=== PATIENT | female | born 1960 | race Caucasian/White ===

== ENCOUNTER → 2019-05-24 | Outpatient (CLI) | payer OTHER ==
[2019-05-24 19:01] LABS: Albumin 4.8 g/dL (3.80-4.90); Albumin/Globulin Ratio 2.18 (1.60-3.17); Anion Gap 9.5 mmol/L (4.00-12.00); Bilirubin, Conjugated 0.2 mg/dL (0.20-0.40); Bilirubin,Unconjugated 0.3 mg/dL; Carbon Dioxide 23.5 mmol/L (21.6-31.8); Globulin 2.2 g/dL (1.6-3.3); Potassium 5.1 mmol/L (3.5-5.5); Total Bilirubin 0.5 mg/dL (0.2-1.2)
== END | disposition home or self-care (01) ==
LOC: LABWHC1 13:42
PROVIDERS: ATTEND Internal Medicine
DX: E03.9 Hypothyroidism, unspecified (principal); R94.6 Abnormal results of thyroid function studies
CPT/HCPCS: 36415; 80051; 80074; 80076; 82330; 82565; 84439; 84443; 84481; 84520

== ENCOUNTER → 2019-06-07 | Outpatient (CLI) | payer OTHER ==
--- NOTE | 2019-06-07 07:45 | US ---
EXAMINATION TYPE: US abdomen limited DATE OF EXAM: 06/07/2019 COMPARISON: NONE CLINICAL HISTORY: R94.5 Abnormal results of liver function studies. cholecystomy EXAM MEASUREMENTS: Liver Length: 14.8 cm Gallbladder Wall: surgically removed CBD: 0.4 cm Right Kidney: 8.4 x 4.0x 4.2 cm Pancreas: overlying bowel gas Liver: Very subtly heterogenous with portions demonstrating suboptimal visualization of the vertebral triads. No focal hepatic mass is seen. Heterogeneity does limit evaluation for hepatic masses. Gallbladder: Surgically absent Evidence for sonographic Montez's sign: No CBD: wnl Right Kidney: wnl IMPRESSION: Very slight heterogeneity of the hepatic parenchyma. This most commonly relates to hepati c steatosis but can be seen in other hepatocellular diseases. Correlate with liver function test resu lts.
== END | disposition home or self-care (01) ==
LOC: RADUSWWP 06:56
PROVIDERS: ATTEND Internal Medicine
DX: R94.5 Abnormal results of liver function studies (principal); Z88.0 Allergy status to penicillin
CPT/HCPCS: 76705

== ENCOUNTER → 2021-12-15 | Outpatient (CLI) | payer MEDICARE ==
--- NOTE | 2021-12-15 15:41 | CT ---
EXAMINATION TYPE: CT lumbar spine wo con DATE OF EXAM: 12/15/2021 1:59 PM COMPARISON: CT dated 08/25/2016 HISTORY: low back pain CT DLP: 939 mGycm Automated exposure control for dose reduction was used. Technique: Unenhanced CT of the lumbar spine was performed. Bone and soft tissue window settings are submitted as well as coronal and sagittal reconstructions. Findings: Partially lumbarized S1. Preserved lumbar curvature. No significant anterolisthesis or retrolisthesis . Suspected chronic healed nondisplaced fracture of the anterior aspect of L3 vertebral body. Bone fr agment is seen at the anterior superior aspect of S1, stable. No definite vertebral body collapse or acute displaced fracture. Degenerative changes at L5-S1 level with degenerated disc and bilateral facet osteoarthropathy. Multilevel tiny opposing endplate osteoph ytosis. L1-L2: No significant disc disease, central spinal canal stenosis or neuroforaminal stenosis. L2-L3: Bilateral focal foraminal disc protrusions associated with slightly prominent posterior epidur al fat, causing no significant central spinal canal stenosis or neuroforaminal stenosis. L3-L4: Mild diffuse posterior disc bulge, associated with slightly prominent posterior epidural fat, causing no significant central spinal canal stenosis or neuroforaminal stenosis. L4-L5: No significant disc disease, central spinal canal stenosis or neuroforaminal stenosis. L5-S1: Degenerated disc with diffuse posterior disc bulge, bilateral focal foraminal and extraforamin al protrusions, associated with bilateral facet osteoarthropathy and posterior osteophytosis, causing mild central spinal canal stenosis, mild right and moderate left neuroforaminal stenosis. Suspected indentation/compression of L5 nerve roots in extraforaminal location by adjacent osteophytosis. Arterial atherosclerotic calcifications. Extensive pancreatic calcifications likely representing sequ marysol of previous pancreatitis. Previous cholecystectomy. No paraspinal lesion. IMPRESSION: Partially lumbarized S1. Degenerative changes of the lumbar spine with multilevel DDD most evident at L5-S1 level as detailed above. Further MRI assessment can be considered if clinically required. Inci dental findings as detailed above.
== END | disposition home or self-care (01) ==
LOC: RADCTMAIN 13:21
PROVIDERS: ATTEND Psychiatry & Neurology Neurology
DX: M47.816 Spondylosis without myelopathy or radiculopathy, lumbar region (principal); M51.37 Other intervertebral disc degeneration, lumbosacral region
CPT/HCPCS: 72131

== ENCOUNTER → 2022-02-23 | Outpatient (CLI) | payer MEDICARE ==
--- NOTE | 2022-02-23 13:07 | CT ---
EXAMINATION TYPE: CT thoracic spine wo con DATE OF EXAM: 02/23/2022 COMPARISON: X-ray dated 07/10/2016 HISTORY: Thoracic pain CT DLP: 523.90 mGycm Automated exposure control for dose reduction was used. TECHNIQUE: Multiplanar CT scan of the thoracic spine without IV contrast administration. FINDINGS: Mild osteopenia. Moderate dextroscoliosis of the thoracic spine with the apex at T9 level. No signifi cant anterolisthesis or retrolisthesis. No definite vertebral body collapse or acute displaced fractu re. Degenerative changes of the thoracic spine with multilevel opposing endplate osteophytosis, degenerat ed discs, facet osteoarthropathy, costovertebral and costotransverse osteoarthropathy. The degenerati ve changes are most evident at T2-3, T3-4, T7-8, T8-9 and T9-10 levels. Multilevel subchondral sclerotic changes are also seen most evident at T9-10 level. Right T2-3, right T5-6, right T7-8, bilateral T8-9 and left T9-10 neural foramina stenosis. No significant thoracic di sc disease or significant central spinal canal stenosis. No paraspinal lesion. Bilateral apical pulmonary fibrotic changes. 4 mm right upper lobe anterior nodule, for follow-up CT scan in 12 months if high risk patient. Scattered arterial and coronary atherosclerotic calcification s. Previous cholecystectomy. Pancreatic calcifications likely representing sequela of chronic pancrea titis. IMPRESSION: Degenerative changes of the thoracic spine with multilevel neural foraminal stenosis as detailed abov e. Further MRI assessment can be considered if clinically required. Other incidental findings as desc ribed above.
== END | disposition home or self-care (01) ==
LOC: RADCTMAIN 12:08
PROVIDERS: ATTEND Psychiatry & Neurology Neurology
DX: M47.812 Spondylosis without myelopathy or radiculopathy, cervical region (principal); K86.89 Other specified diseases of pancreas; M99.71 Connective tissue and disc stenosis of intervertebral foramina of cervical region
CPT/HCPCS: 72128

== ENCOUNTER → 2024-01-06 | Outpatient (CLI) | payer MEDICARE ==
--- NOTE | 2024-01-06 14:08 | XR ---
EXAMINATION TYPE: XR foot complete LT, XR ankle limited LT DATE OF EXAM: 01/06/2024 1:41 PM CLINICAL INDICATION:Female, 63 years old with history of M79.673 FOOT PAIN M25.579 ANKLE AND JOINT PA IN [place]; COMPARISON: None TECHNIQUE: XR foot complete LT, XR ankle limited LT examined in the AP, oblique, and lateral projecti ons. FINDINGS: No evidence of any acute osseous pathology. Soft tissue swelling around the ankle. Joints are preserv ed. Degeneration changes of the foot worse at the first digit metatarsophalangeal joint with joint sp gael narrowing and osteophyte formation. There is soft tissue swelling around the ankle. IMPRESSION: 1. No evidence of acute fracture. 2. 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 3. Soft tissue swelling around the ankle correlate for ligamentous injury.
== END | disposition home or self-care (01) ==
LOC: RADXRMAIN 13:18
PROVIDERS: ATTEND Internal Medicine
DX: M25.472 Effusion, left ankle (principal)

== ENCOUNTER → 2024-01-23 | Outpatient (CLI) | payer MEDICARE ==
--- NOTE | 2024-01-23 14:59 | US ---
EXAMINATION TYPE: US abdomen limited DATE OF EXAM: 01/23/2024 COMPARISON: 2019 Abd CLINICAL INDICATION: Female, 63 years old with history of R74.8 ELEVATED LIVER ENZYMES; Gallbladder r emoved TECHNIQUE: Multiple sonographic images of the right upper quadrant are obtained. FINDINGS: EXAM MEASUREMENTS: Liver Length: 15.8 cm CBD: 1.28 cm Right Kidney: 9.0 x 4.3 x 4.6 cm MANAGER CONCRETE NOTES: Pancreas: Stones noted within pancreatic duct vs CHD Liver: Dilated ducts throughout Gallbladder: Surgically absent Evidence for sonographic Montez's sign: No CBD: wnl s/p cholecystectomy; see above - possible stones pancreatic duct vs CHD Right Kidney: wnl IMPRESSION: 1. Dilated common bile duct. Some calcification may be present within the distal common bile duct at the head of the pancreas. Consider ERCP.
== END | disposition home or self-care (01) ==
LOC: RADUSWWP 09:31
PROVIDERS: ATTEND Internal Medicine
DX: K83.8 Other specified diseases of biliary tract (principal); R74.8 Abnormal levels of other serum enzymes; Z90.49 Acquired absence of other specified parts of digestive tract
CPT/HCPCS: 76705

== ENCOUNTER 2024-03-06 10:18 | Day surgery (SDC) | payer MEDICARE ==
[2024-03-05 08:49] VITALS: BMI 22.4
[2024-03-06] MEDS: IV FLUID CONTINUATION 1,000 ML IV ONE (10:59)
[2024-03-06] MEDS: LACTATED RINGERS 1,000 ML IV SCH (11:08)
[2024-03-06 11:10] VITALS: TEMP 97.8
[2024-03-06] MEDS ORDERED: PROPOFOL 10 MG/ML 20 ML VIAL IV ONE (11:45)
--- NOTE | 2024-03-06 12:08 | P.PCN ---
Date of Procedure: 03/06/24 Procedure(s) Performed: BRIEF HISTORY: Patient is a 63-year-old pleasant white female scheduled for an elective colonoscopy as a part of screening for colon cancer. PROCEDURE PERFORMED: Colonoscopy with snare polypectomy. PREOPERATIVE DIAGNOSIS: Screening for colon cancer. IV sedation per Anesthesia. PROCEDURE: After informed consent was obtained, the patient, was brought into the endoscopy unit. IV sedation was administered by Anesthesia under continuous monitoring. Digital rectal examination was normal. Initially the Olympus CF-160 flexible video colonoscope was then inserted in the rectum, gradually advanced into the cecum without any difficulty. Careful examination was performed as the scope was gradually being withdrawn. Ileocecal valve and the appendiceal orifice were visualized and appeared normal. Prep was poor in several areas of the colon. Mucosa of the cecum, but in the ascending colon there was a 2.5 cm broad- based polyp removed by snare polypectomy and complete polypectomy accomplished. Rest of the ascending colon, transverse colon, descending colon, sigmoid colon, and rectum appeared normal. Retroflexion was performed in the rectum and no lesions were seen. The patient tolerated the procedure well. IMPRESSION: 2.5 cm ascending colon polyp status post piecemeal snare polypectomy and complete polypectomy accomplished Poor prep in several areas of the colon RECOMMENDATIONS: Findings of this examination were discussed with the patient as well as her family. She was advised biopsy results. If the biopsy reveals adenoma she can have repeat colonoscopy in 3 years..
[2024-03-06 12:29] VITALS: BP 134/79; PULSE 85; RESP 15
== END 2024-03-06 12:43 | disposition home or self-care (01) ==
LOC: ORWHC2ENDO 10:18
PROVIDERS: ATTEND Internal Medicine Gastroenterology
DX: Z12.11 Encounter for screening for malignant neoplasm of colon (principal); D12.2 Benign neoplasm of ascending colon; I10 Essential (primary) hypertension; E07.9 Disorder of thyroid, unspecified; F41.9 Anxiety disorder, unspecified; K21.9 Gastro-esophageal reflux disease without esophagitis; F12.90 Cannabis use, unspecified, uncomplicated; F17.200 Nicotine dependence, unspecified, uncomplicated; Z79.890 Hormone replacement therapy; Z79.899 Other long term (current) drug therapy; Z90.49 Acquired absence of other specified parts of digestive tract; Z90.710 Acquired absence of both cervix and uterus; Z88.0 Allergy status to penicillin
CPT/HCPCS: 88305; 45385; J2704

== ENCOUNTER → 2024-04-26 | Outpatient (CLI) | payer MEDICARE ==
--- NOTE | 2024-05-18 14:36 | CT ---
Patient: Gina Green Ordering Physician: Unknown, Unknown ID: [id number] Phone, Pager: Phone : N/A Pager: N/A : 07/08/1961 Age/Gender: 62Y, F Primary Location: N/A Procedure: CT angio neck EXAMINATION TYPE: CT angio head neck DATE OF EXAM: 04/26/2024 HISTORY: Carotid stenosis COMPARISON: No comparison available on downtime PACS. CT DLP: 226 mGycm. Automated Exposure Control for Dose Reduction was Utilized. TECHNIQUE: CTA scan of the neck is performed with IV Contrast, patient injected with 65 mL of Isovue 370, axial images are obtained, coronal and sagittal reformatted images are reviewed. Three-D recons tructed images are created on an independent workstation and reviewed. Source images are reviewed. FINDINGS: Carotid/Vascular Structures: There is a 3 vessel arch. Common carotid arteries bifurcate into internal and external carotid arteries. There is mild narrowin g of the left internal carotid artery approaching 50%. Left internal carotid artery Calculated narrow ing is 48%. There appears to be a critical stenosis of the right internal carotid artery origin. Right carotid Bifurcation is poorly visualized and the internal carotid artery flow lumen is not iden tified. Distal internal carotid artery however is patent with contrast. External carotid artery conta ins contrast. Reconstructed images also suggest critical stenosis. Vertebral arteries are codominant. Internal carotid arteries and vertebral arteries are patent to the skull base. IMPRESSION: 1. Severe High-grade to critical stenosis at the bifurcation distal common carotid artery with extent into the right internal carotid artery origin. 2. Mild narrowing left internal carotid artery origin. NASCET criteria was used in interpretation of this exam?
== END | disposition home or self-care (01) ==
LOC: RADCTMAIN 10:30
PROVIDERS: ATTEND Surgery
DX: I65.23 Occlusion and stenosis of bilateral carotid arteries (principal)
CPT/HCPCS: 70498; Q9967

== ENCOUNTER → 2024-05-24 | Outpatient (CLI) | payer MEDICARE ==
--- NOTE | 2024-05-24 12:52 | XR ---
EXAMINATION TYPE: XR chest 2V DATE OF EXAM: 05/24/2024 COMPARISON: None INDICATION: Elevated white count TECHNIQUE: Frontal and lateral views of the chest are obtained. FINDINGS: The heart size is normal. The pulmonary vasculature is normal. The lungs are clear. Electronic leads are in the right shoulder region. IMPRESSION: 1. No acute pulmonary process. [facility], , 05/24/2024 12:50 PM
== END | disposition home or self-care (01) ==
LOC: RADXRMAIN 12:05
PROVIDERS: ATTEND Internal Medicine
DX: D72.829 Elevated white blood cell count, unspecified (principal)
CPT/HCPCS: 71046

== ENCOUNTER → 2024-05-24 | Outpatient (CLI) | payer MEDICARE ==
[2024-05-24 13:22] LABS: Appearance,Urine Clear (Clear); Bilirubin,Urine Negative (Negative); Blood,Urine Negative (Negative); Color,Urine Colorless; Glucose,Urine (UA) Negative (Negative); Ketones,Urine Negative (Negative); Leukocyte Esterase,Urine Small (Negative); Mucus,Urine Rare /hpf; Nitrite,Urine Negative (Negative); Protein,Urine Negative (Negative); Specific Gravity,Urine 1.004 (1.001-1.035); Squamous Epithelial Cell,Urine 1 /hpf (0-4); Urobilinogen,Urine <2.0 mg/dL (<2.0); WBC,Urine 6 /hpf (0-5)
[2024-05-24 18:48] LABS: Hepatitis A Antibody IgM Nonreactive (Nonreactive); Hepatitis B Core IgM Nonreactive (Nonreactive); Hepatitis B Surface Antigen Nonreactive (Nonreactive); Hepatitis C IgG Antibody Nonreactive (Nonreactive)
[2024-05-25 13:56] LABS: Alkaline Phosphatase, Bone Sp 39.9 ug/L (5.6 - 29.0)
[2024-05-28 15:54] LABS: ALT 142 U/L (8-44); AST 473 U/L (13-35); Albumin 4.3 g/dL (3.8-4.9); Albumin/Globulin Ratio 1.54 Ratio (1.60-3.17); Alkaline Phosphatase 510 U/L (41-126); BUN/Creat Ratio 8.18 Ratio (12.00-20.00); Calcium 9.1 mg/dL (8.7-10.3); Carbon Dioxide 18.3 mmol/L (21.6-31.8); Chloride 96 mmol/L (96-109); Globulin 2.8 g/dL (1.6-3.3); Glucose 95 mg/dL (70-110); Sodium 133 mmol/L (135-145); Total Bilirubin 0.7 mg/dL (0.3-1.2); Total Protein 7.1 g/dL (6.2-8.2)
== END | disposition home or self-care (01) ==
LOC: LABWHC1 12:31
PROVIDERS: ATTEND Internal Medicine
DX: D72.829 Elevated white blood cell count, unspecified
CPT/HCPCS: 36415; 80053; 80074; 81001; 82390; 82525; 83516; 84075; 86038

== ENCOUNTER → 2024-05-29 | Outpatient (CLI) | payer MEDICARE ==
[2024-05-29 10:22] LABS: Basophils # (A) 0.1 k/uL (0-0.2); Basophils % (A) 1 %; Eosinophils # (A) 0.3 k/uL (0-0.7); Eosinophils % (A) 5 %; HGB 11.6 gm/dL (11.4-16.0); Lymphocytes # (A) 1.2 k/uL (1.0-4.8); Lymphocytes % (A) 16 %; MCH 32.8 pg (25.0-35.0); MCHC 33.1 g/dL (31.0-37.0); MCV 99.2 fL (80.0-100.0); Mean Platelet Volume 7.5; Monocytes # (A) 0.5 k/uL (0-1.0); Monocytes % (A) 6 %; Neutrophils # (A) 5.1 k/uL (1.3-7.7); Neutrophils % (A) 70 %; Platelet Count 259 k/uL (150-450); RBC 3.53 m/uL (3.80-5.40); RDW 11.5 % (11.5-15.5); WBC 7.3 k/uL (3.8-10.6)
--- NOTE | 2024-05-29 12:10 | CT ---
EXAMINATION TYPE: CT abdomen pelvis w con CT DLP: 863 mGycm, Automated exposure control for dose reduction was used. DATE OF EXAM: 05/29/2024 11:56 AM COMPARISON: Abdominal ultrasound 01/23/2024 CLINICAL INDICATION:Female, 63 years old with history of R74.8 ABNORMAL LEVELS OF OTHER SERUM ENZYMES ; abnormal labs TECHNIQUE: Standard CT of the abdomen and pelvis following the administration of 100 cc of Isovue 3 00 IV contrast material and oral contrast. Coronal and sagittal reformats were performed. FINDINGS: LOWER CHEST: Unremarkable ABDOMEN LIVER: Unremarkable GALLBLADDER AND BILE DUCTS: Gallbladder is surgical absent. Intra and extrahepatic biliary duct dilat ation with the common bile duct measuring 8 mm at the pancreatic head. PANCREAS: Diffuse parenchymal calcifications throughout the pancreas with diffuse dilated irregular b eaded appearance of the pancreatic duct measuring up to 9 mm at the pancreatic body. No surrounding i nflammatory changes or fluid collections. Prominent 1.1 cm calcification within the pancreatic head. SPLEEN: Unremarkable. ADRENAL GLANDS: Unremarkable. KIDNEYS AND URETERS: No evidence of hydronephrosis or renal calculus. The kidneys have symmetrically. Contrast is demonstrated within both collecting systems on the delayed phase. PELVIS BLADDER: Unremarkable REPRODUCTIVE: The uterus is surgically absent. ABDOMEN & PELVIS STOMACH AND BOWEL: Stomach and duodenum are unremarkable. Enteric contrast reaches the distal small b owel. Few scattered colonic diverticula without evidence for acute diverticulitis. Mild colonic stool burden. The appendix is not definitively visualized. No surrounding inflammatory changes in the righ t lower quadrant. No evidence of bowel obstruction. PERITONEUM: No evidence of pneumoperitoneum or free fluid. VASCULATURE: Moderate atherosclerotic calcifications are present throughout the abdominal aorta and i ts branches. No evidence of aortic aneurysm. Portal venous system appears patent. MUSCULOSKELETAL: No acute osseous abnormalities LYMPH NODES: No gross evidence for lymphadenopathy. SOFT TISSUE/ABDOMINAL WALL: Unremarkable IMPRESSION: Intrahepatic and extra hepatic biliary ductal dilatation postcholecystectomy. Additional findings of chronic pancreatitis with multiple pancreatic parenchymal calcifications and dilated beaded appearanc e of the pancreatic duct. Large calcification within the pancreatic head which may contribute to panc reatic ductal dilatation. No definitive evidence of calcification within the common bile duct within limitations of CT. Findings may relate to stricture from chronic pancreatitis. Additionally post chol ecystectomy physiology could account for the biliary ductal dilatation. Consider further evaluation w ith MRCP and/or ERCP as clinically indicated. [facility], , 05/29/2024 12:07 PM
[2024-05-29 12:31] LABS: RBC Morphology Normal
[2024-05-29 16:43] LABS: Protein, Total 6.6 g/dL (6.2-8.2); Total Protein 6.6 g/dL (6.2-8.2)
[2024-05-29 19:49] LABS: ALT 107 U/L (8-44); AST 81 U/L (13-35); Albumin 4.1 g/dL (3.8-4.9); Albumin/Globulin Ratio 1.64 Ratio (1.60-3.17); Alkaline Phosphatase 376 U/L (41-126); Blood Urea Nitrogen 8.2 mg/dL (9.0-27.0); Calcium 8.8 mg/dL (8.7-10.3); Carbon Dioxide 25.2 mmol/L (21.6-31.8); Chloride 103 mmol/L (96-109); Globulin 2.5 g/dL (1.6-3.3); Glucose 100 mg/dL (70-110); Potassium 4.7 mmol/L (3.5-5.5); Sodium 138 mmol/L (135-145); Total Bilirubin 0.3 mg/dL (0.3-1.2)
[2024-05-31 15:52] LABS: Albumin 3.77 g/dL (3.80-4.90); Gamma Globulin 1.12 g/dL (0.70-1.50)
== END | disposition home or self-care (01) ==
LOC: RADCTMAIN 09:34
PROVIDERS: ATTEND Internal Medicine
DX: R74.8 Abnormal levels of other serum enzymes
CPT/HCPCS: 74177; 80053; 82103; 84165; 85025; 86645; 86665; 86780

== ENCOUNTER 2024-06-18 06:57 | Inpatient (IN) | payer MEDICARE ==
[~2024-06-18 06:57] MED LIST: LIDOCAINE 1% (10MG/ML) FOR IV START INTRADERMA PRN; fentaNYL (PF) 50 MCG/ML 2 ML AMP IVP PRN
[2024-06-18] MEDS: IV FLUID CONTINUATION 1,000 ML IV ONE (07:56)
[2024-06-18] MEDS: ONDANSETRON 4 MG/2 ML VIAL IVP ONE (07:59)
[2024-06-18] MEDS: DEXAMETHASONE SOD PHOSPHATE 4 MG/ML 1 ML VIAL IV ONE (07:59)
[2024-06-18] MEDS: LACTATED RINGERS 1,000 ML IV SCH (07:59)
[2024-06-18] MEDS: fentaNYL (PF) 50 MCG/ML 2 ML AMP IVP STA ×2 (08:11→08:30)
[2024-06-18] MEDS: MIDAZOLAM 2 MG/2 ML VIAL IV PRN (08:11)
--- NOTE | 2024-06-18 09:00 | P.ANPRN ---
Procedure Note - Anesthesia - Invasive Line Right Arterial Line Time Out Performed: Yes Date of Procedure: 06/18/24 Time of Procedure: 08:10 Location of Patient: PreOp Preparation: Sterile Prep, Sterile Dressing Arterial Line Location: Radial Ultrasound Used: Yes Purpose - Visualization and Identification of Vasculature: Yes Needle Guage: 20 Image Stored and Saved: Yes Narrative: Invasive line placement per sterile protocol utilized. attempted Left radial ultrasound ,unable to canulize the radial artery , the ,the A line placed on the Right side ,ultrasound Guided
[2024-06-18] MEDS ORDERED: PROPOFOL 10 MG/ML 20 ML VIAL IV ONE (10:04)
[2024-06-18] MEDS ORDERED: PHENYLEPHRINE 10 MG/ML VIAL ONE (10:04)
[2024-06-18] MEDS ORDERED: fentaNYL (PF) 50 MCG/ML 2 ML AMP ONE (10:04)
[2024-06-18] MEDS ORDERED: NEOSTIGMINE 1 MG/ML 10 ML VIAL ONE (10:04)
[2024-06-18] MEDS ORDERED: PROTAMINE SULFATE 10 MG/ML 5 ML VIAL ONE (10:04)
[2024-06-18] MEDS ORDERED: SUCCINYLCHOLINE CHLORIDE 200 MG/10 ML VIAL IV ONE (10:04)
[2024-06-18] MEDS ORDERED: LIDOCAINE 1% INJ 10MG/ML (20 ML MDV) ONE (10:04)
[2024-06-18] MEDS ORDERED: ROCURONIUM 10 MG/ML (5 ML VIAL) IV ONE (10:04)
[2024-06-18] MEDS ORDERED: HEPARIN SODIUM,PORCINE 5,000 UNIT/ML 1 ML VIAL ONE (10:04)
[2024-06-18] MEDS ORDERED: LABETALOL 5 MG/ML VIAL MDV ONE (10:04)
[2024-06-18] MEDS ORDERED: GLYCOPYRROLATE 0.2 MG/ML 2 ML VIAL ONE (10:04)
[2024-06-18] MEDS: THROMBIN (BOVINE) 5,000 UNIT VIAL TOPICAL ONE ×2 (10:49)
[2024-06-18] MEDS: LIDOCAINE 1% INJ 10MG/ML (20 ML MDV) SQ ONE (10:49)
[2024-06-18] MEDS: ceFAZolin 2 GM in SODIUM CHLORIDE 0.9% 500 ML 500 ML IRRIGATION ONE (10:50)
[2024-06-18] MEDS: HEPARIN SODIUM (1,000 UNIT/ML) 2,000 UNIT in SODIUM CHLORIDE 0.9% 1,000 ML IRRIGATION ONE (10:51)
[2024-06-18] MEDS: LACTATED RINGERS 1,000 ML IV ONE (11:11)
[2024-06-18] MEDS ORDERED: CYCLOBENZAPRINE 10 MG TAB PO PRN (12:42)
--- NOTE | 2024-06-18 12:42 | P.OP ---
Date of Procedure: 06/18/24 Preoperative Diagnosis: Hemodynamically severe right ICA stenosis. Postoperative Diagnosis: Same. Procedure(s) Performed: Right carotid endarterectomy with patch angioplasty. Anesthesia: GIACOMOA Surgeon: Napoleon Oquendo Estimated Blood Loss (ml): 50 Urine output (ml): 500 Pathology: none sent Condition: stable Disposition: ICU Indications for Procedure: Patient is a 63-year-old female who on physical examination was found to have bilateral carotid bruits. This led to obtaining both a carotid duplex study and a CT angiogram of the carotid arterial system. Both revealed hemodynamically severe bilateral ICA stenosis. Given the patient's relatively young age of 63 it was felt that she would be best served by carotid endarterectomy as opposed to carotid stent procedure. The procedure of carotid endarterectomy, risk and benefits were discussed with the patient in great detail. All questions were answered to patient's satisfaction and patient wished to proceed. Consent form was signed. Description of Procedure: Patient was brought to a room placed in the supine position administered general endotracheal anesthesia delivered by the department of anesthesiology. The patient received intravenously administered prophylactic antibiotics in the perioperative phase. Patient's right neck, supraclavicular and anterior chest wall areas were sterilely prepped and draped in the usual manner. Skin incision was made along the anterior border the sternocleidomastoid muscle and carried down through the subcutaneous tissues. Hemostasis was achieved using electrocautery. The incision was deepened through the platysma and carried along the border of the anterior sternocleidomastoid muscle which was mobilized posterior laterally. The facial vein was identified and skeletonized. It was doubly ligated with silk suture and transected. The incision was deepened through to the carotid sheath where the common carotid artery was identified and dissected free of investing tissues and encircled with Vesseloops. The vagus nerve was identified and left undisturbed. The dissection was carried cephalad to the level of bulb where the superior thyroid artery was dissected free of investing tissues and encircled with a vessel loop as was the external carotid artery. The hypoglossal nerve was identified and left undisturbed. The dissection was then carried cephalad along the internal carotid artery and this was dissected free of investing tissues to the level past the point of plaque burden. The patient was systemically heparinized and after adequate circulation time and appropriate ACT being achieved the Vesseloops around the internal, common as well as the external and superior thyroid arteries were drawn closed. Arteriotomy was made in the common extended superiorly through the bulb and into the internal carotid segment past the level of plaque formation. Stump pressures were obtained which demonstrated mean arterial pressure of approximately 64 to 65 mmHg and thus no shunting was felt necessary. Endarterectomy plane was begun at the level of the common and extended superiorly through the level of the bulb. Retraction endarterectomy was performed on the external system. The endarterectomy was then continued into the internal segment and feathered off. The remaining luminal surface was inspected for any loose or free-floating material and this was removed where identified. The distal plaque was tacked at the internal carotid artery with 6- 0 Prolene suture. Closure with bovine pericardium of the arteriotomy was accomplished with 6-0 Prolene suture placed in a running fashion. Just prior to completion of the anastomotic line the arteriotomy was backbled through the internal as well as the external carotid system and flushed through the common system and no thrombus was retrieved. Arteriotomy closure was completed. Vesseloops were loosened about the superior thyroid as well as the external carotid artery, followed by the common and then the internal segments, flushing any potential debris into the external system. The anastomotic line had 1 point of bleeding which was controlled with 6-0 Prolene suture. The patient received 12.5 mg of protamine to reverse the heparin effect. Excellent pulse in the ICA distal to the endarterectomy plane was appreciated. Topical thrombin and Gelfoam were placed about the anastomotic line to help assure hemostasis. The wound was irrigated and reinspected. Hemostasis was judged to be adequate. Deep tissues were closed with 3-0 Vicryl and dermis was closed with 4-0 Monocryl placed in a running fashion. Appropriate dressings were applied. Patient tolerated the procedure well, awoke without apparent complication was transferred to the recovery area in satisfactory and stable condition.
[2024-06-18] MEDS ORDERED: BENZOCAINE/MENTHOL LOZENG 1 EACH LOZENGE MUCOUS MEM PRN (13:05)
[2024-06-18] MEDS ORDERED: MAG HYDROX/AL HYDROX/SIMETH 30 ML CUP PO PRN (13:05)
[2024-06-18] MEDS ORDERED: TRIMETHOBENZAMIDE 100 MG/ML 2 ML VIAL IM PRN (13:05)
[2024-06-18] MEDS: HYDROmorphone 0.5 MG/0.5 ML SYRINGE IVP PRN (13:22)
--- NOTE | 2024-06-18 15:06 | P.CNPUL ---
History of Present Illness Consult date: 06/18/24 Chief complaint: Carotid artery stenosis History of present illness: This is a 63-year-old female patient underwent a right carotid endarterectomy with patch angioplasty and the patient is currently postop day #1. The patient was found to have a hemodynamically severe right ICA stenosis and this surgery was done on an elective basis by vascular surgery. The patient is currently doing well. Hemodynamically stable. Cardiac rhythm is sinus. No hypotension. No sinus bradycardia. Surgical wound site is dry clean and intact. Postop white cell count is at 7.3 hemoglobin 11.6 and a platelet count of 256. Electrolytes are all within normal limits. AST is at 81 with an ALT of 107 and alkaline phosphatase of 376. She has history of hypothyroidism maintained on thyroid hormone replacement/Synthroid and the patient also has history of hyperlipidemia, hypertension and history of chronic anxiety/depression. She is moving all 4 extremities. No focal neurological deficits. Clinically and hemodynamically stable at this point in time. The patient will be transferred to ICU for monitoring for the next 24 hours. Pulse ox 99% on 2 L of oxygen. Oxygen Review of Systems Constitutional: Reports as per HPI Eyes: denies as per HPI, denies blurred vision, denies bulging eye, denies decreased vision, denies diplopia, denies discharge, denies dry eye, denies irritation, denies itching, denies pain, denies photophobia, denies loss of peripheral vision, denies loss of vision, denies tunnel vision/blind spots Ears: deny: decreased hearing, ear discharge, earache, tinnitus Ears, nose, mouth and throat: Reports as per HPI Breasts: absent: as per HPI, change in shape, gynecomastia, masses, nipple discharge, pain, skin changes, swelling Cardiovascular: Reports as per HPI Respiratory: Reports as per HPI Gastrointestinal: Reports as per HPI Genitourinary: Reports as per HPI Menstruation: Reports as per HPI Musculoskeletal: Reports as per HPI Musculoskeletal: absent: ankle pain, ankle stiffness, ankle swelling, as per HPI, elbow pain, elbow stiffness, elbow swelling, foot pain, foot stiffness, foot swelling, hand pain, hand stiffness, hand swelling, hip pain, hip stiffness, hip swelling, knee pain, knee stiffness, knee swelling, shoulder pain, shoulder stiffness, shoulder swelling, wrist pain, wrist stiffness, wrist swelling Integumentary: Reports as per HPI Neurological: Reports as per HPI Psychiatric: Reports as per HPI Endocrine: Reports as per HPI Allergic/Immunologic: Reports as per HPI Past Medical History Past Medical History: Eye Disorder, GERD/Reflux, Hyperlipidemia, Hypertension, Musculoskeletal Disorder, Osteoarthritis (OA), Thyroid Disorder, Vascular Disorder Additional Past Medical History / Comment(s): partially blind, feels foggy at times, History of Any Multi-Drug Resistant Organisms: None Reported Past Surgical History: Appendectomy, Cholecystectomy, Hysterectomy, Orthopedic Surgery Additional Past Surgical History / Comment(s): right leg femur fracture, eyes bilateral lens surgery, nalu permanent pain device , back pain chronic and sciatic nerve, colonoscopy, egd, hardware removed from rt leg,sinus sx Past Anesthesia/Blood Transfusion Reactions: No Reported Reaction Additional Past Anesthesia/Blood Transfusion Reaction / Comment(s): no blood transfusion Smoking Status: Former smoker - Past Family History Mother Family Medical History: CVA/TIA Father Additional Family Medical History / Comment(s): heart disease Medications and Allergies Home Medications Medication Instructions Recorded Confirmed Type Hydrocodone/Acetaminophen [[place] 1 - 2 each PO Q6HR PRN #50 tab 12/26/14 06/12/24 Rx 5-325] ARIPiprazole [Abilify] 2 mg PO DAILY 03/05/24 06/12/24 History Cholecalciferol (Vitamin D3) 4 tab PO DAILY 03/05/24 06/12/24 History [Vitamin D3 (125 MCG = 5,000 IU)] Esomeprazole Magnesium 40 mg PO DAILY 03/05/24 06/12/24 History Gabapentin 300 mg PO TID 03/05/24 06/12/24 History Levothyroxine Sodium [Synthroid] 137 mcg PO DAILY 03/05/24 06/12/24 History Losartan Potassium 100 mg PO DAILY 03/05/24 06/12/24 History Morphine Sulfate ER [Ms Contin] 15 mg PO BID PRN 03/05/24 06/12/24 History Sertraline HCl [Zoloft] 200 mg PO DAILY 03/05/24 06/12/24 History amLODIPine BESYLATE 10 mg PO DAILY 03/05/24 06/12/24 History atenoloL [Tenormin] 25 mg PO DAILY 03/05/24 06/12/24 History Aspirin [Adult Low Dose Aspirin EC] 81 mg PO DAILY 06/12/24 06/12/24 History Atorvastatin [Lipitor] 40 mg PO HS 06/12/24 06/12/24 History Cyclobenzaprine [Flexeril] 10 mg PO TID PRN 06/12/24 06/12/24 History Allergies Allergy/AdvReac Type Severity Reaction Status Date / Time Penicillins Allergy Rash/Hives. Verified 06/18/24 07:33 SWELLING. SOB. ITCHING. Physical Exam Vitals: Vital Signs Temp Pulse Resp BP BP Pulse Ox 06/18/24 14:45 74 18 142/61 99 06/18/24 14:15 70 18 143/65 99 06/18/24 13:45 72 14 129/65 131/52 97 06/18/24 13:30 73 14 137/69 139/52 97 06/18/24 13:15 72 14 145/74 149/57 96 06/18/24 13:00 73 16 139/66 137/55 99 06/18/24 12:45 71 16 140/67 156/59 99 06/18/24 12:31 97.6 F 77 16 157/82 156/57 99 06/18/24 09:12 67 16 138/68 100 06/18/24 07:30 97.5 F L 77 16 142/74 98 Intake and Output 06/18/24 06/18/24 06/18/24 06:59 14:59 22:59 Intake Total 1552 Output Total 550 Balance 1002 Intake: IV 1552 Output: Urine 500 Estimated Blood Loss 50 Other: Weight 61.9 kg The patient appeared well nourished and normally developed. Vital signs as documented. Head exam is unremarkable. No scleral icterus or corneal arcus noted. Neck is without jugular venous distension, thyromegaly, or carotid bruits. Carotid upstrokes are brisk bilaterally. The surgical wound site over the neck area is dry clean and intact Lungs are clear to auscultation and percussion. Cardiac exam reveals the PMI to be normally sized and situated. Rhythm is regular. First and second heart sounds normal. No murmurs, rubs or gallops. Abdominal exam reveals normal bowel sounds, no masses, no organomegaly and no aortic enlargement. Extremities are nonedematous and both femoral and pedal pulses are normal. Examination of the skin revealed no evidence of significant rashes, suspicious appearing nevi or other concerning lesions. Neurologically, the patient is awake and alert and the patient does not have any focal neurological deficit. Cranial nerves are essentially intact. Assessment and Plan Plan: GERD artery stenosis, severe, status post right carotid endarterectomy with patch angioplasty and the patient is currently postop day #0. Clinically stable, hemodynamically stable, no focal neurological deficit and the patient will be monitored in the intensive care unit. Cardiac rhythm is sinus. No neurological deficits. Hypertension Hyperlipidemia Osteoarthritis History of chronic anxiety/depression Plan Currently on 2 L of oxygen by nasal cannula Surgical wound is dry clean and intact Frequent neurological examination Continue aspirin 81 mg p.o. daily Continue Plavix 75 mg p.o. daily Resume home medications Will monitor this patient for the next 24 hours in the ICU.
[2024-06-18 15:23] LABS: Glucose,Whole Blood 129 mg/dL (70-110)
[2024-06-18] MEDS: atenoloL 25 MG TAB PO SCH (17:20)
[2024-06-18] MEDS: CLOPIDOGREL 75 MG TAB PO SCH (17:20)
[2024-06-18] MEDS: ASPIRIN 81 MG PO SCH (17:20)
[2024-06-18] MEDS: LEVOTHYROXINE 137 MCG TAB PO SCH (17:20)
[2024-06-18] MEDS: GABAPENTIN 300 MG CAP PO SCH (17:51)
[2024-06-18] MEDS: HYDROcodone/APAP 5-325MG 1 EACH TAB PO PRN (18:54)
[2024-06-18] MEDS: HYDROmorphone 1 MG/ML 1 ML SYRINGE IVP STA (19:51)
[2024-06-18] MEDS: ATORVASTATIN 40 MG TAB PO SCH (21:40)
[2024-06-18] MEDS: MORPHINE SULFATE ER 15 MG TABLET PO SCH (21:40)
[2024-06-19] MEDS: oxyCODONE-APAP 7.5-325MG 1 EACH TAB PO PRN (01:54)
[2024-06-19 04:43] LABS: Basophils % (A) 0 %; Eosinophils # (A) 0.1 k/uL (0-0.7); Eosinophils % (A) 1 %; HCT 30.5 % (34.0-46.0); HGB 10.7 gm/dL (11.4-16.0); Lymphocytes # (A) 1.4 k/uL (1.0-4.8); Lymphocytes % (A) 11 %; MCH 33.8 pg (25.0-35.0); MCHC 34.9 g/dL (31.0-37.0); MCV 96.8 fL (80.0-100.0); Mean Platelet Volume 7.8; Monocytes # (A) 0.6 k/uL (0-1.0); Monocytes % (A) 5 %; Neutrophils # (A) 10.2 k/uL (1.3-7.7); Neutrophils % (A) 82 %; Platelet Count 226 k/uL (150-450); RBC 3.15 m/uL (3.80-5.40); WBC 12.3 k/uL (3.8-10.6)
[2024-06-19] MEDS: PANTOPRAZOLE 40 MG TABLET PO SCH (06:34)
[2024-06-19] MEDS: SERTRALINE 100 MG TAB PO SCH (08:15)
[2024-06-19] MEDS: ARIPiprazole 2 MG TAB PO SCH (08:15)
[2024-06-19] MEDS: amLODIPine 10 MG TAB PO SCH (08:15)
[2024-06-19] MEDS: LOSARTAN 50 MG TAB PO SCH (08:16)
[2024-06-19] MEDS: CHOLECALCIFEROL 125 MCG (5000 IU) TABLET PO SCH (08:16)
--- NOTE | 2024-06-19 08:24 | P.DS ---
Providers Date of admission: 06/18/24 06:57 Expected date of discharge: 06/19/24 Attending physician: Napoleon Oquendo DO Consults: 06/18/24 12:46 Consult Physician Routine Consulting Provider: Keyanna Copeland Consult Reason/Comments: medical management Do you want consulting provider notified?: Already Contacted [facility] care physician: [facility]: 63-year-old female found to have bilateral carotid bruit who underwent imaging revealing hemodynamically severe bilateral ICA stenosis. Plan to move forward with a right carotid endarterectomy. She is postop day #1 for right carotid endarterectomy with patch angioplasty. Patient has a history of chronic pain and is on multiple pain medications. She reportedly was complaining of right neck pain and generalized pain throughout the night requesting her pain medications. This morning patient is seen sitting up, she denies any focal deficits. States pain is better managed. States she would like to go home. She has been up and voiding well. She had a small bowel movement. Denies any difficulty with swallowing. Pressures have been stable throughout the night with systolics running 130s to 150s. This morning blood pressures are elevated secondary to patient being upset. Exam General appearance: The patient is alert, oriented, appears in no acute distress. HET: Head is normocephalic and atraumatic. Pupils are equal and reactive. Neck: Supple. Right neck with incision well-approximated, minimal ecchymosis, mild swelling no hematoma. Heart: Regular. Lungs: Equal expansion, normal respiratory effort. Abdomen: Soft, nontender, nondistended. Extremities: Normal skin color and turgor. Neurological: No focal deficits. Strength and sensation are grossly intact. Assessment 1. Hemodynamically severe right ICA stenosis status post carotid endarterectomy with patch angioplasty 2. Chronic pain syndrome 3. Hyperlipidemia 4. Hypertension Plan 1. Encourage ambulation 2. Continue aspirin and Plavix, Plavix prescription sent to patient's pharmacy 3. Continue home medications 4. May discontinue arterial line. Continue to monitor blood pressures. Maintain systolic BP 130 to 180 mmHg 5. Plan for discharge if cleared by warehouse incentive selector 6. Discharge instructions reviewed with patient. She verbalized understanding. The impression and plan of care has been dictated as directed. I performed a history and examination of this patient, discussed the same with the dictator. I agree with the dictator's note ,documented as a scribe. Any additional findings or plans will be noted. Procedures: Right carotid endarterectomy with patch angioplasty Patient Condition at Discharge: Stable Plan - Discharge Summary Discharge Rx Participant: No New Discharge Prescriptions: New Clopidogrel [Plavix] 75 mg PO DAILY #30 tab Continue Hydrocodone/Acetaminophen [[place] 5-325] 1 - 2 each PO Q6HR PRN #50 tab PRN Reason: Pain atenoloL [Tenormin] 25 mg PO DAILY amLODIPine BESYLATE 10 mg PO DAILY Sertraline HCl [Zoloft] 200 mg PO DAILY Morphine Sulfate ER [Ms Contin] 15 mg PO BID PRN PRN Reason: Pain Losartan Potassium 100 mg PO DAILY Levothyroxine Sodium [Synthroid] 137 mcg PO DAILY Gabapentin 300 mg PO TID Cyclobenzaprine [Flexeril] 10 mg PO TID PRN PRN Reason: Muscle Spasm Esomeprazole Magnesium 40 mg PO DAILY Cholecalciferol (Vitamin D3) [Vitamin D3 (125 MCG = 5,000 IU)] 4 tab PO DAILY ARIPiprazole [Abilify] 2 mg PO DAILY Atorvastatin [Lipitor] 40 mg PO HS Aspirin [Adult Low Dose Aspirin EC] 81 mg PO DAILY Discharge Medication List Hydrocodone/Acetaminophen [[place] 5-325] 1 - 2 each PO Q6HR PRN #50 tab 12/26/14 [Rx] ARIPiprazole [Abilify] 2 mg PO DAILY 03/05/24 [History] Cholecalciferol (Vitamin D3) [Vitamin D3 (125 MCG = 5,000 IU)] 4 tab PO DAILY 03/05/24 [History] Esomeprazole Magnesium 40 mg PO DAILY 03/05/24 [History] Gabapentin 300 mg PO TID 03/05/24 [History] Levothyroxine Sodium [Synthroid] 137 mcg PO DAILY 03/05/24 [History] Losartan Potassium 100 mg PO DAILY 03/05/24 [History] Morphine Sulfate ER [Ms Contin] 15 mg PO BID PRN 03/05/24 [History] Sertraline HCl [Zoloft] 200 mg PO DAILY 03/05/24 [History] amLODIPine BESYLATE 10 mg PO DAILY 03/05/24 [History] atenoloL [Tenormin] 25 mg PO DAILY 03/05/24 [History] Aspirin [Adult Low Dose Aspirin EC] 81 mg PO DAILY 06/12/24 [History] Atorvastatin [Lipitor] 40 mg PO HS 06/12/24 [History] Cyclobenzaprine [Flexeril] 10 mg PO TID PRN 06/12/24 [History] Clopidogrel [Plavix] 75 mg PO DAILY #30 tab 06/19/24 [Rx] Follow up Appointment(s)/Referral(s): Napoleon Oquendo DO [Doctor of Osteopathic Medicine] - 2 Weeks Frandy Pryor DO [Primary Care Provider] - 1 Week Patient Instructions/Handouts: Clopidogrel (By mouth) Activity/Diet/Wound Care/Special Instructions: No strenuous activity or heavy lifting greater than 10 pounds. May shower tomorrow but no tub bathing or soaking. Watch incision site for infection including redness, drainage, or temperature greater than 100.4. If you notice he symptoms please call office Discharge Disposition: HOME SELF-CARE
[2024-06-19] MEDS: ACETAMINOPHEN TAB 325 MG TAB PO PRN (11:43)
[2024-06-19 12:20] LABS: ALT 74 U/L (4-34); AST 69 U/L (14-36); African American GFR (CKD) >90 (>60 ml/min/1.73 sqM); Albumin 3.1 g/dL (3.5-5.0); Alkaline Phosphatase 282 U/L (38-126); Anion Gap 4 mmol/L; Blood Urea Nitrogen 6 mg/dL (7-17); Calcium 8.9 mg/dL (8.4-10.2); Carbon Dioxide 29 mmol/L (22-30); Chloride 105 mmol/L (98-107); Glucose 105 mg/dL (74-99); Non-African American GFR(CKD) 80 (>60 ml/min/1.73 sqM); Potassium 3.9 mmol/L (3.5-5.1); Sodium 138 mmol/L (137-145); Total Bilirubin 0.3 mg/dL (0.2-1.3); Total Protein 5.5 g/dL (6.3-8.2)
[2024-06-19 13:08] VITALS: PULSE 92; TEMP 98
--- NOTE | 2024-06-19 13:19 | P.PN ---
Subjective Progress Note Date: 06/19/24 This is a 63-year-old female patient underwent a right carotid endarterectomy with patch angioplasty and the patient is currently postop day #1. The patient was found to have a hemodynamically severe right ICA stenosis and this surgery was done on an elective basis by vascular surgery. The patient is currently doing well. Hemodynamically stable. Cardiac rhythm is sinus. No hypotension. No sinus bradycardia. Surgical wound site is dry clean and intact. Postop white cell count is at 7.3 hemoglobin 11.6 and a platelet count of 256. Electrolytes are all within normal limits. AST is at 81 with an ALT of 107 and alkaline phosphatase of 376. She has history of hypothyroidism maintained on thyroid hormone replacement/Synthroid and the patient also has history of hyperlipidemia, hypertension and history of chronic anxiety/depression. She is moving all 4 extremities. No focal neurological deficits. Clinically and hemodynamically stable at this point in time. The patient will be transferred to ICU for monitoring for the next 24 hours. Pulse ox 99% on 2 L of oxygen. On 06/19/2024, the patient is doing well. No neurological deficit and the surgical site is dry clean and intact. Blood pressure was noted to be elevated and the patient was started back on her antihypertensive medication with subsequent adequate response. Currently she is on Norvasc 10 mg p.o. daily, atenolol 25 mg p.o. daily, and she is also on losartan 100 mg p.o. daily. Pain control is with Percocet and she is also on Flexeril and Neurontin. IV fluids are normal lactated Ringer at rate of 20 cc an hour. White cell count of 12.3 with a hemoglobin 10.7 and a platelet count of 226. BUN is at 6 with a c reatinine of 0.8 and a sodium levels of 138. LFTs are mildly elevated with an AST of 69, ALT of 74 with an alkaline phosphatase of 282. No nausea vomiting or abdominal pain. This can be followed up on outpatient basis. Patient is doing well and she is requesting to be released home. Objective - Vital Signs Vital signs: Vital Signs Temp 97.9 F 06/19/24 08:00 Pulse 84 06/19/24 10:00 Resp 15 06/19/24 10:00 BP 165/95 06/19/24 10:00 Pulse Ox 96 06/19/24 10:00 FiO2 Intake & Output 06/18/24 06/19/24 06/19/24 18:59 06:59 18:59 Intake Total 1612 240 60 Output Total 1100 800 950 Balance 512 -560 -890 Weight 61.9 kg 65.2 kg Intake: IV 1612 240 60 LR 60 240 60 Output: Urine 1050 800 950 Estimated Blood Loss 50 Other: Voiding Method Bedpan Bedpan Bedside Commode # Voids 1 1 1 # Bowel Movements 1 ABP, PAP, CO, CI - Last Documented Arterial Blood Pressure 170/75 - Exam The patient appeared well nourished and normally developed. Vital signs as documented. Head exam is unremarkable. No scleral icterus or corneal arcus noted. Neck is without jugular venous distension, thyromegaly, or carotid bruits. Carotid upstrokes are brisk bilaterally. The surgical wound site over the neck area is dry clean and intact Lungs are clear to auscultation and percussion. Cardiac exam reveals the PMI to be normally sized and situated. Rhythm is regular. First and second heart sounds normal. No murmurs, rubs or gallops. Abdominal exam reveals normal bowel sounds, no masses, no organomegaly and no aortic enlargement. Extremities are nonedematous and both femoral and pedal pulses are normal. Examination of the skin revealed no evidence of significant rashes, suspicious appearing nevi or other concerning lesions. Neurologically, the patient is awake and alert and the patient does not have any focal neurological deficit. Cranial nerves are essentially intact. - Labs CBC & Chem 7: 06/19/24 04:30 06/19/24 04:30 Labs: Abnormal Lab Results - Last 24 Hours (Table) 06/18/24 06/19/24 Range/Units 15:21 04:30 WBC 12.3 H (3.8-10.6) k/uL RBC 3.15 L (3.80-5.40) m/uL Hgb 10.7 L (11.4-16.0) gm/dL Hct 30.5 L (34.0-46.0) % Neutrophils # 10.2 H (1.3-7.7) k/uL POC Glucose (mg/dL) 129 H (70-110) mg/dL Assessment and Plan Plan: Carotid artery stenosis, severe, status post right carotid endarterectomy with patch angioplasty and the patient is currently postop day #1. Clinically stable, hemodynamically stable, no focal neurological deficit and the patient will be monitored in the intensive care unit. Cardiac rhythm is sinus. No neurological deficits. Hypertension, had a blood pressure control improved and the patient was restarted on a combination of antihypertensive medication including losartan, amlodipine and metoprolol. Hyperlipidemia Osteoarthritis History of chronic anxiety/depression Plan Currently on room air oxygen Surgical wound is dry clean and intact Frequent neurological examination Continue aspirin 81 mg p.o. daily Continue Plavix 75 mg p.o. daily Resume home medications May discharge home if okayed by vascular surgery.
[2024-06-19 13:36] VITALS: BP 149/77; RESP 18
== END 2024-06-19 14:52 | disposition home or self-care (01) | DRG 39 ==
LOC: 2ORMAIN 06:57 → 2SICU 14:46
PROVIDERS: ADMIT Surgery; ATTEND Surgery
PROC: 03UK0JZ Supplement Right Internal Carotid Artery with Synthetic Substitute, Open Approach (ICD-10-PCS; 2024-06-18)
PROC: 03CK0ZZ Extirpation of Matter from Right Internal Carotid Artery, Open Approach (ICD-10-PCS; principal; 2024-06-18 08:50)
DX: I65.23 Occlusion and stenosis of bilateral carotid arteries (principal); E03.9 Hypothyroidism, unspecified; Z79.890 Hormone replacement therapy; E78.5 Hyperlipidemia, unspecified; G89.4 Chronic pain syndrome; H54.7 Unspecified visual loss; I10 Essential (primary) hypertension; F41.8 Other specified anxiety disorders; Z79.02 Long term (current) use of antithrombotics/antiplatelets; Z79.82 Long term (current) use of aspirin; Z79.899 Other long term (current) drug therapy; Z87.891 Personal history of nicotine dependence; Z90.710 Acquired absence of both cervix and uterus
CPT/HCPCS: 80053; 85025; 86850; 86900; 86901; 88304; 88311

== ENCOUNTER → 2025-02-22 | Outpatient (CLI) | payer MEDICARE ==
--- NOTE | 2025-02-22 09:33 | US ---
EXAMINATION TYPE: US abdomen complete DATE OF EXAM: 02/22/2025 COMPARISON: CT: 05/29/24, US: 01/23/24 CLINICAL INDICATION: Female, 64 years old with history of R74.01 ELEVATION OF LEVELS OF LIVER TRANSAM INASE L; elevated liver enzymes, cholecystectomy TECHNIQUE: Grayscale and color Doppler imaging of the abdomen was performed. FINDINGS: EXAM MEASUREMENTS: Liver Length: 11.9 cm Gallbladder Wall: Surgically absent CBD: 1.0 cm, color Doppler imaging was utilized to isolate the common bile duct for measurement. Spleen: 8.8 cm Right Kidney: 8.3 x 5.1 x 4.5 cm Left Kidney: 8.5 x 5.0 x 4.5 cm RESIDENTIAL [employer]IVER NOTES: Pancreas: dilated duct with echogenic foci seen inside compatible with chronic otitis calcifications . Dilated duct better appreciated on CT. Liver: heterogeneous Gallbladder: surgically absent Evidence for sonographic Montez's sign: No CBD: upper limits of normal Spleen: wnl Right Kidney: wnl, No hydronephrosis, calculi or masses seen Left Kidney: wnl, No hydronephrosis, calculi or masses seen Upper IVC: wnl Abd Aorta: wnl The liver is coarsened and heterogenous. The intrahepatic portion of the IVC and proximal abdominal aorta are within normal limits. Common bile duct is unremarkable. The visualized portions of the pa ncreas are homogenous. The spleen is unremarkable. Kidneys are symmetric and free of hydronephrosis . No renal lesions are seen. IMPRESSION: 1. No evidence for acute process. 2. Chronic pancreatitis changes. 3. Hepatic steatosis. [facility], , 02/22/2025 9:31 AM
== END | disposition home or self-care (01) ==
LOC: RADUSWWP 08:19
PROVIDERS: ATTEND Emergency Medicine
DX: K76.0 Fatty (change of) liver, not elsewhere classified (principal); K86.1 Other chronic pancreatitis; R74.01 Elevation of levels of liver transaminase levels
CPT/HCPCS: 76700

== ENCOUNTER → 2025-04-02 | Outpatient (CLI) | payer MEDICARE ==
[2025-04-02 15:10] LABS: Cholesterol 113.00 mg/dL (0.00-200.00); HDL Cholesterol 54.10 mg/dL (40.00-60.00); LDL Cholesterol,Calculated 34.7 mg/dL (0.0-131.0); Triglycerides 121.00 mg/dL (0.00-149.00); VLDL Calculation 24.20 mg/dL (5.00-40.00)
[2025-04-02 15:11] LABS: ALT 36 U/L (8-44); AST 48 U/L (13-35)
[2025-04-03 03:49] LABS: B/A1 Ratio 0.29 Ratio (0.30 - 0.90)
== END | disposition home or self-care (01) ==
LOC: LABWHC1 11:53
PROVIDERS: ATTEND Internal Medicine
DX: E78.2 Mixed hyperlipidemia (principal)
CPT/HCPCS: 36415; 80061; 82172; 84450; 84460